=== PATIENT | female | born 1955 | race Caucasian/White ===

== ENCOUNTER → 2020-01-25 | Outpatient (CLI) | payer MEDICARE ==
--- NOTE | 2020-01-25 19:38 | XCELERA REPORT ---
[address] [address] Transthoracic Echocardiogram Report Name: BINH SRIVASTAVA Age: 64 yrs Gender: Female : 1955 Patient Status: Outpatient Patient Location: Study Date: 01/25/2020 01:21 PM Height: 64 in Weight: 185 lb BSA: 1.9 m2 Procedure: A two-dimensional transthoracic echocardiogram with color flow and Doppler was performed. Study Quality: Fair. Reason For Study: MURMUR History: MURMUR. Ordering Physician: DONOVAN LEIGH Performed By: Angel Gutierres Interpretation Summary The left ventricle is normal in size. There is normal left ventricular wall thickness. LV EF is 65% Left ventricular systolic function is normal. Doppler measurements suggest normal left ventricular diastolic function The left ventricular wall motion is normal. There is no thrombus. No ASD,VSD , or PFO seen. The right ventricle is normal in size and function. The right atrium is normal in size The left atrial size is normal. There is no evidence of mitral valve prolapse. There is no vegetation seen on the mitral valve. There is no mitral valve stenosis. There is a trace to mild amount of mitral regurgitation There is no aortic valvular vegetation. There is no LVOT obstruction. There is no aortic valve stenosis There is aortic sclerosis without aortic stenosis. No aortic regurgitation is present. There is no tricuspid stenosis. There is a mild amount of tricuspid regurgitation There is mild pulmonary hypertension by echo RVSP is 33 to 38 mm of Hg , with RA mean of 5 to 10. There is no pulmonic valvular stenosis. There is no pulmonic valvular regurgitation. The aortic root is normal size. The inferior vena cava appeared normal and decreased > 50% with respiration (RAP 5-10 mmHg) There is no pericardial effusion. MMode/2D Measurements & Calculations RVDd: 2.2 cm LVIDd: 4.7 cm FS: 33.2 % Ao root diam: 2.5 cm IVSd: 1.1 cm LVIDs: 3.1 cm EDV(Teich): 102.8 ml Ao root area: 5.1 cm2 LVPWd: 1.1 cm ESV(Teich): 39.2 ml LA dimension: 4.0 cm EF(Teich): 61.8 % LVOT diam: 1.9 cm LVOT area: 3.0 cm2 Doppler Measurements & Calculations MV E max octavia: MV P1/2t max octavia: Ao V2 max: LV V1 max P.4 cm/sec 102.5 cm/sec 196.2 cm/sec 7.4 mmHg MV A max octavia: MV P1/2t: 80.0 msec Ao max PG: LV V1 max: 67.5 cm/sec MVA(P1/2t): 2.7 cm2 15.4 mmHg 136.2 cm/sec MV E/A: 1.4 MV dec slope: YOON(V,D): 2.1 cm2 LV dP/dt: 3029 mmHg/s 375.2 cm/sec2 MV dec time: 0.22 sec PA V2 max: TR max octavia: MV P1/2t-pr_phl: 112.9 cm/sec 262.8 cm/sec 80.0 msec PA max PG: TR max P.6 mmHg 5.1 mmHg Left Ventricle The left ventricle is normal in size. There is normal left ventricular wall thickness. LV EF is 65%. Left ventricular systolic function is normal. Doppler measurements suggest normal left ventricular diastolic function. The left ventricular wall motion is normal. There is no thrombus. No ASD,VSD , or PFO seen. Right Ventricle The right ventricle is normal in size and function. Atria The right atrium is normal in size. The left atrial size is normal. Mitral Valve There is no evidence of mitral valve prolapse. There is no vegetation seen on the mitral valve. There is no mitral valve stenosis. There is a trace to mild amount of mitral regurgitation. Aortic Valve There is no aortic valvular vegetation. There is no LVOT obstruction. There is no aortic valve stenosis. There is aortic sclerosis without aortic stenosis. No aortic regurgitation is present. Tricuspid Valve There is no tricuspid stenosis. There is a mild amount of tricuspid regurgitation. There is mild pulmonary hypertension by echo. RVSP is 33 to 38 mm of Hg , with RA mean of 5 to 10. Pulmonic Valve There is no pulmonic valvular stenosis. There is no pulmonic valvular regurgitation. Great Vessels The aortic root is normal size. The inferior vena cava appeared normal and decreased > 50% with respiration (RAP 5-10 mmHg). Effusions There is no pericardial effusion. : DONOVAN LEIGH Lakshmi
== END ==
LOC: SP 13:03
PROVIDERS: ATTEND Nurse Practitioner Family
DX: R01.1 Cardiac murmur, unspecified (principal)
CPT/HCPCS: 93306